=== PATIENT | female | born 1965 | race Caucasian/White ===

== ENCOUNTER 2019-02-14 08:51 | Day surgery (SDC) | payer OTHER ==
[2019-02-14] MEDS ORDERED: PROPOFOL 40 ML (10:19)
[2019-02-14] MEDS ORDERED: MIDAZOLAM 1 MG/ML 2 ML INJ (10:19)
[2019-02-14] MEDS ORDERED: LIDOCAINE 2% JELLY 5 ML (10:19)
== END 2019-02-14 15:55 | disposition home or self-care (01) ==
LOC: GIL 08:51
DX: K55.20 Angiodysplasia of colon without hemorrhage (principal); K29.50 Unspecified chronic gastritis without bleeding; K20.8 Other esophagitis; Z86.010 Personal history of colon polyps
CPT/HCPCS: 43239; 88305; 88312